=== PATIENT | female | born 1940 | race Caucasian/White ===

== ENCOUNTER 2016-07-23 11:04 | Emergency (ER) | payer OTHER ==
[~2016-07-23] VITALS: Ht 165.1 cm; Wt 60.3 kg
--- NOTE | 2016-07-23 11:07 | NUR ---
ER at bedside examining patient.
--- NOTE | 2016-07-23 11:07 | NUR ---
PATIENT TO ER BED 6.DAUGHTER AT BEDSIDE.PER PATIENT SHE LOST HER BALANCE AND FELL ON A CARPETED FLOOR AN HOUR AGO WHILE FAMILY MEMBERS ARE CLEANING THE HOUSE AND HIT HER HEAD.COMPLAINING OF RIGHT HIP PAIN 10/30.NO COMPLAIN OF NAUSEA/VOMITING.BUMP TO BACK OF HEAD NOTED.SWELLING TO RIGHT BUTTOCK NOTED;NO REDNESS;NO OPEN AREA;NO SKIN DISCOLORATION.NO OTHER COMPLAIN/INJURIES PER PATIENT OR NOTED
--- NOTE | 2016-07-23 11:07 | NUR ---
Pt placed to ER bed 06, to gown, report given to CHAD Hamilton.
[2016-07-23 11:10] VITALS: BP_SYST 116
--- NOTE | 2016-07-23 11:27 | NUR ---
PATIENT TO RADIOLOGY FOR CT
[2016-07-23] MEDS ORDERED: IBUPROFEN 600 MG TABLET PO ONE (11:30)
--- NOTE | 2016-07-23 11:52 | NUR ---
Pt refused the motrin, states she has norco at home
[2016-07-23 12:06] VITALS: BP_SYST 114
--- NOTE | 2016-07-23 12:06 | NUR ---
Patient given written and verbal discharge instructions and verbalizes understanding. ER MD discussed with patient the results and treatment provided. Patient in stable condition. ID arm band removed. No Rx given. Patient educated on pain management and to follow up with PMD. Pain Scale 2. Pt tolerates pain level at 2 and will take pain medication at home. Opportunity for questions provided and answered.
== END 2016-07-23 12:06 | disposition home or self-care (01) ==
LOC: SED 11:04
DX: S09.90XA Unspecified injury of head, initial encounter (principal); M25.551 Pain in right hip; E11.9 Type 2 diabetes mellitus without complications; I10 Essential (primary) hypertension; Z85.9 Personal history of malignant neoplasm, unspecified; Z96.649 Presence of unspecified artificial hip joint; W19.XXXA Unspecified fall, initial encounter; Y93.89 Activity, other specified; Y92.89 Other specified places as the place of occurrence of the external cause; Y99.8 Other external cause status
CPT/HCPCS: 70450-TC; 72125-TC; 73521; 99284

== ENCOUNTER 2021-12-20 09:25 | Outpatient (CLI) | payer OTHER ==
[2021-12-20] MEDS ORDERED: MIDAZOLAM HCL 5 MG/5 ML VIAL ONE (12:10)
== END 2021-12-20 15:10 | disposition home or self-care (01) ==
LOC: SCT 09:25
PROVIDERS: ATTEND Internal Medicine
DX: K74.3 Primary biliary cirrhosis (principal)
CPT/HCPCS: 47000; 77012; 88307; 88313; J2250